=== PATIENT | female | born 1980 | race Caucasian/White ===

== ENCOUNTER 2018-05-05 08:36 | Emergency (ER) | payer BC ==
[~2018-05-05] VITALS: Ht 167.6 cm; Wt 135.7 kg
--- NOTE | 2018-05-05 09:44 | NUR ---
First contact with patient: Patient states lateral ankle swelling bilaterally and "zings" of pain generalized throughout body. Patient denies lower extremity swelling aside from lateral ankles. Patient denies shortness of breath. Patient up to restroom to provide urine sample, ambulates with steady gait. Patient does not appear to be in acute distress at this time.
[2018-05-05 10:10] LABS: BASOPHILS # (AUTO) 0.05 x10^3/uL (0-0.1); BASOPHILS % (AUTO) 1 % (0-1); EOSINOPHILS % (AUTO) 1 % (1-7); LYMPHOCYTES # (AUTO) 2.55 x10^3/uL (1-3.4); LYMPHOCYTES % (AUTO) 30 % (22-44); MD NO; MEAN CORPUSCULAR HEMOGLOBIN 30.4 pg (27.0-34.8); MEAN CORPUSCULAR HGB CONC 34.2 g/dL (32.4-35.8); MEAN CORPUSCULAR VOLUME 88.9 fL (80-100); MONOCYTES % (AUTO) 5 % (2-9); NEUTROPHILS % (AUTO) 64 % (42-75); PLATELET COUNT 313 x10^3/uL (130-400); RED BLOOD COUNT 4.85 x10^6/uL (3.82-5.3); RED CELL DISTRIBUTION WIDTH 13.6 % (9.6-15.2)
[2018-05-05 10:11] LABS: HCT (SEDRATE) 43.6 % (34.6-47.8)
[2018-05-05 10:12] VITALS: BP 158/107
[2018-05-05] MEDS ORDERED: METF500T17 PO (10:13)
[2018-05-05] MEDS ORDERED: CBD OIL PO (10:13)
[2018-05-05 10:18] LABS: ANION GAP 8 mmol/L (5-15); CALCIUM 8.5 mg/dL (8.5-10.1); CHLORIDE 109 mmol/L (98-107); CREATININE 0.88 mg/dL (0.55-1.02)
[2018-05-05 10:20] LABS: MICROSCOPIC AUTO
[2018-05-05 10:34] LABS: CULTURE INDICATED? YES
--- NOTE | 2018-05-05 11:00 | NUR ---
all resutls back at this time. chart up for recheck.
== END 2018-05-05 11:23 | disposition home or self-care (01) ==
LOC: ED 10:08
DX: M13.872 Other specified arthritis, left ankle and foot (principal); M13.871 Other specified arthritis, right ankle and foot; M13.852 Other specified arthritis, left hip; M13.851 Other specified arthritis, right hip; N30.00 Acute cystitis without hematuria; I10 Essential (primary) hypertension
CPT/HCPCS: 36415; 80048; 81001; 85025; 85651; 86140; 87086; 99283

== ENCOUNTER 2019-05-28 18:18 | Emergency (ER) | payer BC ==
[~2019-05-28] VITALS: Ht 167.6 cm; Wt 135.8 kg
[~2019-05-28 18:18] MED LIST: CBD OIL PO; METF500T17 PO
--- NOTE | 2019-05-28 19:01 | NUR ---
REPORT GIVEN TO ARNEL
[2019-05-28 19:03] LABS: BASOPHILS # (AUTO) 0.05 x10^3/uL (0-0.1); BASOPHILS % (AUTO) 1 % (0-1); EOSINOPHILS # (AUTO) 0.18 x10^3/uL (0-0.4); EOSINOPHILS % (AUTO) 2 % (1-7); LYMPHOCYTES # (AUTO) 3.47 x10^3/uL (1-3.4); LYMPHOCYTES % (AUTO) 31 % (22-44); MD NO; MEAN CORPUSCULAR HEMOGLOBIN 29.4 pg (27.0-34.8); MEAN CORPUSCULAR HGB CONC 33.4 g/dL (32.4-35.8); MEAN CORPUSCULAR VOLUME 88.1 fL (80-100); MEAN PLATELET VOLUME 8.8 fL (7.4-10.4); MONOCYTES % (AUTO) 5 % (2-9); NEUTROPHILS # (AUTO) 6.96 x10^3/uL (1.8-6.8); NEUTROPHILS % (AUTO) 62 % (42-75); PLATELET COUNT 306 x10^3/uL (130-400); RED BLOOD COUNT 4.72 x10^6/uL (3.82-5.3); RED CELL DISTRIBUTION WIDTH 13.5 % (9.6-15.2)
[2019-05-28 19:15] LABS: ALBUMIN 3.8 g/dL (3.4-5.0); ANION GAP 7 mmol/L (5-15); CHLORIDE 106 mmol/L (98-107); CREATININE 0.72 mg/dL (0.55-1.02)
--- NOTE | 2019-05-28 19:22 | NUR ---
Report received from RYAN Greene. This RN to assume care. Urine sent. Awaiting lab results.
[2019-05-28 19:26] LABS: MICROSCOPIC AUTO
[2019-05-28 19:28] VITALS: BP 134/99
[2019-05-28 19:28] LABS: CULTURE INDICATED? YES
--- NOTE | 2019-05-28 20:49 | NUR ---
Discharge instructions given. All questions and concerns addressed. Patient ambulatory with a steady gait. Belongings with patient.
== END 2019-05-28 20:51 | disposition home or self-care (01) ==
LOC: ED 18:44
DX: B34.9 Viral infection, unspecified (principal); R19.7 Diarrhea, unspecified; I10 Essential (primary) hypertension; E11.9 Type 2 diabetes mellitus without complications
CPT/HCPCS: 36415; 71045; 80048; 81001; 82040; 84703; 85025; 87086; 99284

== ENCOUNTER → 2019-07-30 | Outpatient (CLI) | payer BC, OTHER | END | disposition home or self-care (01) | LOC: CVU 15:19 | PROVIDERS: ATTEND Internal Medicine Cardiovascular Disease | DX: I10 Essential (primary) hypertension (principal); E78.00 Pure hypercholesterolemia, unspecified | CPT/HCPCS: 93306 ==